=== PATIENT | female | born 1955 | race Hispanic/Latino ===

== ENCOUNTER 2017-12-29 20:18 | Observation (INO) | payer BC, SELFPAY ==
[2017-12-29] MEDS ORDERED: Morphine 4 mg/ml ISec IVP STA (21:51)
--- NOTE | 2017-12-29 22:18 | CT ---
EXAM: CT Left Lower Extremity Without Intravenous Contrast, Hip CLINICAL HISTORY: 62 years old, female; Pain; Hip; Left; Additional info: Left hip pain TECHNIQUE: Axial computed tomography images of the left hip without intravenous contrast. All CT scans at this facility use one or more dose reduction techniques, viz.: automated exposure control; ma/kV adjustment per patient size (including targeted exams where dose is matched to indication; i.e. head); or iterative reconstruction technique. Coronal and sagittal reformatted images were created and reviewed. COMPARISON: No relevant prior studies available. FINDINGS: Bones/joints: No acute fracture. Mild degenerative changes of LEFT hip joint. Moderate degenerative changes within lower lumbar spine. No dislocation. Probable bone islands. Soft tissues: 2.0 cm fluid density lesion within subcutaneous tissues left anterolateral lower abdominal wall, incompletely imaged. Clinical correlation is needed. Reproductive: Few coarse calcifications within uterus, likely fibroids. IMPRESSION: 1. No fracture. 2. If hip pain persists, consider MRI to exclude occult fracture/internal derangement. 3. Incidental/non-acute findings are described above.
[2017-12-29 22:32] LABS: BASO # 0.03 K/mm3 (0.0-2.0); BASO % 0.3 % (0.0-3.0); EOS # 0.2 (0.0-0.7); EOS % 1.6 % (1.5-5.0); GRAN # 4.83 (1.4-6.5); GRAN % 51.4 % (50.0-68.0); HEMOGLOBIN 13.6 g/dL (12.0-16.0); LYMPH # 3.9 (1.2-3.4); LYMPH % 41.6 % (22.0-35.0); MEAN CELL VOLUME 85.1 fl (80.0-105.0); MEAN CORPUSCULAR HEMOGLOBIN 28.1 pg (25.0-35.0); MONO # 0.5 (0.1-0.6); MONO % 5.1 % (1.0-6.0); RBC 4.84 10^6/uL (3.5-6.1); RED CELL DISTRIBUTION WIDTH 15.7 % (11.5-14.5); WHITE BLOOD COUNT 9.4 10^3/ul (4.5-11.0)
[2017-12-29] MEDS ORDERED: HYDROmorphone 1 mg/ml ISec IVP STA (22:41)
[2017-12-29 22:43] LABS: ALB/GLOB RATIO 1.4 (1.1-1.8); ALBUMIN 4.2 g/dL (3.0-4.8); ALT/SGPT 36 U/L (7-56); AST/SGOT 22 U/L (14-36); BLOOD UREA NITROGEN 17 mg/dL (7-21); CALCIUM 9.4 mg/dL (8.4-10.5); GFR AFRICAN-AMERICAN > 60; GFR NON-AFRICAN AMERICAN > 60
--- NOTE | 2017-12-29 22:48 | ED PDOC ---
Arrival/HPI - General Historian: Patient <Christina Shafer - Last Filed: 12/30/17 01:12> <Sumanth Haynes - Last Filed: 12/30/17 01:19> - General Chief Complaint: Hip Pain Time Seen by Provider: 12/29/17 20:21 - History of Present Illness Narrative History of Present Illness (Text): 12/29/17 22:42 62yr old female presents today with worsening left hip pain. pt denies recent trauma or injury. pt states that she has been having worsening left hip pain x 1 month. pt states she has been taking motrin for pain without improvement. pt states that the pain has become so back that she is unable to bare weight on the left leg. pt states she has hx of MS and has decreased function of the right leg so she relies on the left leg for slight ambulation. pt denies numbness in the extremity. pt states she has chronic swelling of the bilateral lower legs. pt denies abdominal pain. pt denies bladder or bowel incontinence. pt states pain in the hip is so severe that her back only minimally hurts. no other complaints. (Christina Shafer) Past Medical History - Provider Review Nursing Documentation Reviewed: Yes - Travel History Have you recently traveled outside [place] w/in the past 3 mons?: No - Infectious Disease Hx of Infectious Diseases: None - Tetanus Immunization Tetanus Immunization: Unknown - Neurological Hx Neurological Disorder: Yes Hx Multiple Sclerosis: Yes - Musculoskeletal/Rheumatological Hx Musculoskeletal Disorders: Yes (MS) Hx Falls: Yes - Psychiatric Hx Depression: No Hx Emotional Abuse: No Hx Physical Abuse: No Hx Substance Use: No - Surgical History Hx Tonsillectomy: Yes Other/Comment: LIPOSUCTION - Anesthesia Hx Anesthesia: Yes Hx Anesthesia Reactions: No Hx Malignant Hyperthermia: No - Suicidal Assessment Feels Threatened In Home Enviroment: No <Christina Shafer - Last Filed: 12/30/17 01:12> Family/Social History - Physician Review Nursing Documentation Reviewed: Yes Family/Social History: Unknown Family HX Smoking Status: Former Smoker Hx Alcohol Use: No Hx Substance Use: No <Christina Shafer - Last Filed: 12/30/17 01:12> Allergies/Home Meds <Christina Shafer - Last Filed: 12/30/17 01:12> <Sumanth Haynes - Last Filed: 12/30/17 01:19> Allergies/Adverse Reactions: Allergies No Known Allergies Allergy (Verified 09/18/14 14:47) Home Medications: Home Meds Medication Instructions Recorded Confirmed No Known Home Med 12/29/17 12/29/17 Review of Systems - Review of Systems Constitutional: absent: Fatigue, Fevers Respiratory: absent: SOB, Cough Cardiovascular: absent: Chest Pain, Palpitations Gastrointestinal: absent: Abdominal Pain, Nausea, Vomiting Musculoskeletal: Arthralgias, Back Pain. absent: Neck Pain Skin: absent: Rash, Pruritis Neurological: absent: Headache, Dizziness Psychiatric: absent: Anxiety, Depression <Christina Shafer - Last Filed: 12/30/17 01:12> Physical Exam Vital Signs Reviewed: Yes Temperature: Afebrile Blood Pressure: Hypertensive Pulse: Regular Respiratory Rate: Normal Appearance: Positive for: Well-Appearing, Non-Toxic, Uncomfortable Pain Distress: Moderate Mental Status: Positive for: Alert and Oriented X 3 - Systems Exam Head: Present: Atraumatic Mouth: Present: Moist Mucous Membranes Respiratory/Chest: Present: Clear to Auscultation Cardiovascular: Present: Regular Rate and Rhythm Abdomen: Present: Other (there is a 2cm round mobile non tender lesion noted to the left lower anterior abdominal wall without surrounding erythema. ). No: Tenderness, Distention, Rebound, Guarding Back: Present: Normal Inspection. No: Midline Tenderness, Paraspinal Tenderness Upper Extremity: Present: Normal ROM Lower Extremity: Present: Edema, Tenderness (pelvis stable; + ttp over anterior aspect of hip; no edema, no erythema, no ecchymosis; limited rom of hip, no calf tenderness, + lower leg edema, no erythema; right leg; + edema, nontender, compression stocking noted on calf. ), Neurovascularly Intact. No: Normal ROM, Erythema, Capillary Refill < 2 s Neurological: Present: GCS=15, Speech Normal Skin: Present: Warm, Dry, Normal Color. No: Rashes Psychiatric: Present: Alert, Oriented x 3 <Christina Shafer - Last Filed: 12/30/17 01:12> Vital Signs Temp Pulse Resp BP Pulse Ox 12/30/17 01:18 90 18 148/79 99 12/30/17 00:04 93 H 12 148/92 H 100 12/29/17 22:48 88 16 159/78 H 100 12/29/17 20:28 97.6 F 89 16 182/98 H 100 Medical Decision Making <Christina Shafer - Last Filed: 12/30/17 01:12> <Sumanth Haynes - Last Filed: 12/30/17 01:19> ED Course and Treatment: 12/29/17 22:52 62yr old female with MS with severe left hip pain and inability to ambulate. pt refused xray of hip; ct of hip; FINDINGS: Bones/joints: No acute fracture. Mild degenerative changes of LEFT hip joint. Moderate degenerative changes within lower lumbar spine. No dislocation. Probable bone islands. Soft tissues: 2.0 cm fluid density lesion within subcutaneous tissues left anterolateral lower abdominal wall, incompletely imaged. Clinical correlation is needed. Reproductive: Few coarse calcifications within uterus, likely fibroids. IMPRESSION: 1. No fracture. 2. If hip pain persists, consider MRI to exclude occult fracture/internal derangement. 3. Incidental/non-acute findings are described above. pt given toradol for pain without improvement; morphine added. pt reassessment after toradol and morphine; pt still with 10/10 pain and limited ROM of hip. dilaudid added. pt seen and evaluated by dr. 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 daniels covering for dr. curiel; accepts observational status admission for intractable pain, inability to ambulate. impression; hip pain, arthritis, intractable pain admit observational status. (Christina Shafer) - Lab Interpretations Lab Results: 12/29/17 22:28 12/29/17 22:28 Lab Results 12/29/17 22:28: WBC 9.4, RBC 4.84, Hgb 13.6, Hct 41.2, MCV 85.1, MCH 28.1, MCHC 33.0, RDW 15.7 H, Plt Count 248, MPV 11.0, Gran % 51.4, Lymph % (Auto) 41.6 H, [place] % (Auto) 5.1, Eos % (Auto) 1.6, Baso % (Auto) 0.3, Gran # 4.83, Lymph # ( Auto) 3.9 H, [place] # (Auto) 0.5, Eos # (Auto) 0.2, Baso # (Auto) 0.03 12/29/17 22:28: Sodium 144, Potassium 3.8, Chloride 108 H, Carbon Dioxide 23, Anion Gap 17, BUN 17, Creatinine 0.6 L, Est GFR ( Amer) > 60, Est GFR ( Non-Af Amer) > 60, Random Glucose 88, Calcium 9.4, Total Bilirubin 0.2, AST 22, ALT 36, Alkaline Phosphatase 111, Total Protein 7.3, Albumin 4.2, Globulin 3.0, Albumin/Globulin Ratio 1.4 - RAD Interpretation Radiology Orders: 12/29/17 20:46 EXT LOWER W/O CONTRAST LEFT [CT] Stat 12/29/17 22:39 DUPLEX LOWER EXTRM VEIN LEFT [US] Stat - Medication Orders Current Medication Orders: Discontinued Medications Hydromorphone HCl (Dilaudid) 1 mg IVP STAT STA Stop: 12/29/17 22:42 Last Admin: 12/29/17 22:47 Dose: 1 mg MAR Pain Assessment Document 12/29/17 22:47 CNR (Rec: 12/29/17 22:48 CNR [place] [id number]) Pain Reassessment Is this a pain reassessment? No IVP Administration Document 12/29/17 22:47 CNR (Rec: 12/29/17 22:48 CNR [place] [id number]) Charges for Administration # of IVP Administrations 1 Ketorolac Tromethamine (Toradol) 60 mg IM STAT STA Stop: 12/29/17 20:46 Last Admin: 12/29/17 20:58 Dose: 60 mg MAR Pain Assessment Document 12/29/17 20:58 CNR (Rec: 12/29/17 20:59 CNR [id number]) Pain Reassessment Is this a pain reassessment? No IM Administration Charges Document 12/29/17 20:58 CNR (Rec: 12/29/17 20:[address]) Injection Site MAR Injection Site Right Deltoid Charges for Administration # of IM Administrations 1 Morphine Sulfate (Morphine) 4 mg IVP STAT STA Stop: 12/29/17 21:52 Last Admin: 12/29/17 22:07 Dose: 4 mg MAR Pain Assessment Document 12/29/17 22:07 CNR (Rec: 12/29/17 22:15 CNR [facility]) Pain Reassessment Is this a pain reassessment? 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 / has examined the patient and agrees with the treatment plan. <Sumanth Haynes - Last Filed: 12/30/17 01:19> Disposition/Present on Arrival - Present on Arrival Any Indicators Present on Arrival: No History of DVT/PE: No History of Uncontrolled Diabetes: No Urinary Catheter: No History of Decub. Ulcer: No History Surgical Site Infection Following: None - Disposition Have Diagnosis and Disposition been Completed?: Yes Disposition Time: 00:21 Patient Plan: Observation <Christina Shafer - Last Filed: 12/30/17 01:12> <Sumanth Haynes - Last Filed: 12/30/17 01:19> - Disposition Diagnosis: Hip pain, Intractable pain Disposition: HOSPITALIZED Patient Problems: Current Active Problems Problem Status Onset Hip pain Acute Intractable pain Acute Condition: FAIR
--- NOTE | 2017-12-30 02:01 | CP.PCM.PN ---
Subjective - Date & Time of Evaluation Date of Evaluation: 12/30/17 Time of Evaluation: 01:59 - Subjective Subjective: S:complained of left hip pain. Seen at bedside. She is in a wheelchair now. Has sharp left hip pain. Has no other complaints. Received toradol 60 mg IV , morphine 4 mg IV earlier with no help. Received dlaudid 1 mg IV with some help (10:47). Now beginning to have pain again. Last Vital Signs 3 Temp 97.6 F 12/29/17 20:28 Pulse 90 12/30/17 01:18 Resp 18 12/30/17 01:18 BP 148/79 12/30/17 01:18 Pulse Ox 99 12/30/17 01:18 O: not in acute distress, is in wheelchair. LUNGS:Normal breathing pattern. A:Left hip pain. Multiple sclerosis. P:Dilaudid 1 mg IV Q4H x 3 doses, will order analgesic in AM. Objective - Vital Signs/Intake and Output Vital Signs (last 24 hours): Temp Pulse Resp BP Pulse Ox 97.6 F 90 18 148/79 99 12/29/17 20:28 12/30/17 01:18 12/30/17 01:18 12/30/17 01:18 12/30/17 01:18
[2017-12-30 02:23] VITALS: RESP 20; BMI 32.3
[2017-12-30] MEDS ORDERED: Pneumococcal 23-Valent Vaccine IM ONE (02:23)
[2017-12-30] MEDS: HYDROmorphone 0.5 mg/0.5 ml ISec IVP PRN ×2 (02:33→06:17)
--- NOTE | 2017-12-30 09:44 | HP ---
DATE OF EXAM: 12/30/2017 CHIEF COMPLAINT AND HISTORY OF PRESENT ILLNESS: This is a 62-year-old female who is coming to the hospital complaining of left leg pain. She says the pain has been occurring for the last month, but it has become worse and she is not able to ambulate. She is not able to bear weight. She has been taking Motrin, but has not been having improvement of her symptoms. She does have back issues. She says she has a history of MS and has decreased function. She is in a wheelchair. She does ambulate though. She has no fevers or chills. No nausea. No vomiting. She says the pain is 10/10. It is mostly in the left leg. Does not improve with medications. It is worsen with movement. REVIEW OF SYMPTOMS: All other review of symptoms are within normal limits except that was mentioned. ALLERGIES: NO KNOWN DRUG ALLERGIES. HOME MEDICATIONS: None. FAMILY HISTORY: Noncontributory. SOCIAL HISTORY: She lives with her . She denies smoking or drinking. PAST SURGICAL HISTORY: Tonsillectomy. PAST MEDICAL HISTORY: Multiple sclerosis. PHYSICAL EXAMINATION: VITAL SIGNS: Temperature is 97.3, pulse of 99, blood pressure is 133/73, respirations 20, O2 saturation is 100. GENERAL: The patient lying in bed, uncomfortable, and in no acute distress. HEENT: Atraumatic and normocephalic. Anicteric sclerae. Moist mucosa. [place] conjunctivae. No oral lesions. NECK: No JVD, anterior and posterior adenopathy, thyromegaly, or bruits. CARDIOVASCULAR: S1 and S2 regular. No murmur, rubs, or gallop. LUNGS: Clear to auscultation bilaterally. No wheezes, rales, or rhonchi. ABDOMEN: Bowel sounds are positive. Soft, nontender and nondistended. No hepatosplenomegaly. No rebound and no guarding EXTREMITIES: No cyanosis, clubbing. Lower extremity, 1+ edema. NEUROLOGIC: No facial asymmetry. Tongue is midline. No uvula deviation. Power is 5/5 upper extremity and lower extremity. Sensation intact in upper extremity and lower extremity. PSYCHIATRIC: She is awake, alert and oriented x3. No anxiety or depression. She has normal affect. GENITOURINARY: No CVA tenderness. VASCULAR: 2+ pulses in the carotid pulses and pedal pulses. SKIN: No erythema or nodules. SPINE: Shows normal curvature. LABORATORY DATA: White count of 9.4, hemoglobin is 13.6, platelet count is 248. Chemistry shows the creatinine is 0.6. ASSESSMENT: 1. Left leg pain. 2. Multiple sclerosis. 3. Lower extremity edema. PLAN: The patient is admitted to the hospital. She was given Toradol. She does not have improvement of her symptoms. The patient is on Lasix daily. She has lower extremity edema. I will give her Lasix. She is on 1 mg of Dilaudid every 4, but as she says that the pain continues to be above 5 or 6 and not able to get relief and then it starts worsening before the 4 hours. I will increase the Dilaudid to 4 mg. I will get Dr. Olivares for consultation. She will also need physical therapy. She was given a pneumonia shot. She has lower extremity Dopplers ordered. I will place her on Lasix. Because of the edema, she is also going to get an echo. We will follow closely. Preet Hopkins MD
[2017-12-30] MEDS: HYDROmorphone 2 mg/ml ISec IVP PRN ×2 (10:03→14:06)
--- NOTE | 2017-12-30 14:16 | US ---
PROCEDURE: Left lower extremity venous US HISTORY: Leg pain and swelling. Evaluate for DVT. PHYSICIAN(S): Bandar Bean MD. TECHNIQUE: Duplex sonography and color-flow Doppler with graded compression were used to evaluate the deep venous system of the left lower extremity. The exam is limited by body habitus and edema. FINDINGS: The visualized deep venous system of the left lower extremity is sonographically normal and compressible. Normal wave forms and augmentation are seen. There is no sonographic evidence for deep venous thrombosis in the visualized segments of the left lower extremity. IMPRESSION: 1. No sonographic evidence for deep venous thrombosis in the visualized segments of the left lower extremity.
[2017-12-30] MEDS ORDERED: MethylPREDNISolone Depo 40 mg/ml Inj IM ONE (14:23)
[2017-12-30] MEDS ORDERED: Bupivacaine 0.5% Inj(30mL) IJ ONE (14:23)
[2017-12-30 18:09] VITALS: TEMP 99.2
--- NOTE | 2017-12-30 18:43 | CARD ---
APPROVED REPORT EXAM: Two-dimensional and M-mode echocardiogram with Doppler and color Doppler. INDICATION 2D DIMENSIONS IVSd1.3 (0.7-1.1cm)LVDd3.7 (3.9-5.9cm) PWd1.2 (0.7-1.1cm)LVDs2.5 (2.5-4.0cm) FS (%) 31.1 %LVEF (%)59.7 (>50%) M-Mode DIMENSIONS Left Atrium (MM)3.60 (2.5-4.0cm)Aortic Root2.80 (2.2-3.7cm) Aortic Cusp Exc.2.30 (1.5-2.0cm) Aortic Valve AoV Peak Sclcrjmb967.0cm/[place] Peak GR.8mmHg Mitral Valve MV E Cfgwebgx02.2cm/sMV A Jomzppsy41.5cm/sE/A ratio0.8 TDI Lateral E' Peak V9.94cm/sMedial E' Peak V6.82cm/sE/Lateral E'6.4 E/Medial E'9.3 Tricuspid Valve TR Peak Sewolads520sd/sRAP [id number] Peak Gr.21mmHg [id number] LEFT VENTRICLE The left ventricle is normal size. There is mild concentric left ventricular hypertrophy. The left ventricular function is normal. The left ventricular ejection fraction is within the normal range. There is normal LV segmental wall motion. RIGHT VENTRICLE The right ventricle is normal size. The right ventricular systolic function is normal. ATRIA The left atrium size is normal. The right atrium size is normal. The interatrial septum is intact with no evidence for an atrial septal defect. AORTIC VALVE The aortic valve is not well visualized. There is no aortic valvular stenosis. MITRAL VALVE The mitral valve is normal in structure. Mitral regurgitation is trace. TRICUSPID VALVE The tricuspid valve is normal in structure. There is mild tricuspid regurgitation. PULMONIC VALVE The pulmonic valve is not well visualized. GREAT VESSELS The aortic root is normal in size. The IVC is normal in size and collapses >50% with inspiration. PERICARDIAL EFFUSION There is no pleural effusion. There is no pericardial effusion. <Conclusion> Technically limited study. Chamber sizes appear within normal limits. LV systolic function appears normal. Mild concentric LVH. Mild tricuspid regurgitation.
--- NOTE | 2017-12-30 20:44 | CP.PCM.PN ---
Subjective - Date & Time of Evaluation Date of Evaluation: 12/30/17 Time of Evaluation: 20:38 - Subjective Subjective: Patient was being transferred to the commode when he slid down on the floor with the assitance of the nurses. The nurses called a [place] as a result since the nurse couldn't pick her up alone. With the assistance of the director of gift planning, Phlebotimist and Resident they placed her back on the commode. The patient was examined and PMD Dr. Hopkins was notified. He told us to cancel the Discharge order and to notify her that she should stay. Patient was unwilling to stay and agreed to sign out AMA. She was examined and determined to be alert and orientated x 3 prior to being discharged. Patient was made aware of possible future falls at while and risk of cranial injury, hematoma, hemorrhage, demise and . She verbally told me she understood the risks and signed out AMA. Objective - Vital Signs/Intake and Output Vital Signs (last 24 hours): Temp Pulse Resp BP Pulse Ox 99.2 F 96 H 20 128/65 98 12/30/17 18:00 12/30/17 18:00 12/30/17 18:00 12/30/17 18:00 12/30/17 18:00 - Medications Medications: Current Medications Furosemide (Lasix) 40 mg IVP DAILY [place] Last Admin: 12/30/17 11:20 Dose: 40 mg Hydromorphone HCl (Dilaudid) 2 mg IVP Q4H PRN PRN Reason: Pain, severe (8-10) Last Admin: 12/30/17 14:06 Dose: 2 mg - Head Exam Head Exam: ATRAUMATIC, NORMAL INSPECTION, NORMOCEPHALIC - Eye Exam Eye Exam: EOMI, Normal appearance - ENT Exam ENT Exam: Mucous Membranes Moist - Respiratory Exam Respiratory Exam: Clear to Ausculation Bilateral, NORMAL BREATHING PATTERN - Cardiovascular Exam Cardiovascular Exam: REGULAR RHYTHM, +S1, +S2 - Extremities Exam Additional comments: Unable to move lower extremities bilaterally. Passive ROM intact. No pain upon examination. - Psychiatric Exam Psychiatric exam: Normal Affect, Normal Mood - Skin Skin Exam: Dry, Intact
--- NOTE | 2017-12-31 00:23 | CON ---
DATE: ORTHOPEDIC CONSULTATION HISTORY OF PRESENT ILLNESS: The patient was admitted for weakness and pain of her pelvis area and left groin. X-rays done in the ER. CAT shows no evidence of fracture, but she is tender not to the anterior part of the hip capsule but more in the area of inguinal ligament and the left greater trochanter region. CAT scan does not show a fracture and she is hesitant to get a MRI because of her size and being that she has multiple sclerosis, she does not ambulate at all and she lives alone and transfers by herself from bed to motorized chair, and she could accomplish activities of daily living that way. She has a good support of friends. She is tender to the ilioinguinal ligament, along the anterior superior iliac spine, so I injected that region to suspect tendonitis with Depo-Medrol, Marcaine. We will hold off on the MRI as the CAT scan yet did not show fracture, but if need be, we will have to get a MRI to evaluate for a stress fracture. We will put warm compress on that region of trigger point pain along the anterior superior iliac spine and see how the cortisone injection works. We will evaluate her tomorrow. FINAL DIAGNOSES: Inguinal ligament tendonitis and trochanteric bursitis. Also we will see how the cortisone and Depo-Medrol Marcaine injection worked by evaluating her tomorrow that was given to the left groin trigger point near the ilioinguinal ligament laterally. We will hold off the MRI unless she gets worse of the left hip. Lobo Olivares DO
[2017-12-31 00:33] VITALS: BP 147/84; PULSE 107; O2SAT 100
== END 2017-12-30 20:38 | disposition left against medical advice (07) ==
LOC: ED 20:18 → ERH 12-30 00:22 → 3RSO 12-30 01:24
PROVIDERS: ADMIT Internal Medicine Nephrology; ATTEND Internal Medicine Nephrology
DX: M70.62 Trochanteric bursitis, left hip (principal); M77.8 Other enthesopathies, not elsewhere classified; G35 Multiple sclerosis; M79.605 Pain in left leg
CPT/HCPCS: 73700; 80053; 85025; 93306; 93971; 96372; 96374; 96375; 96376; 99285; G0378; J1170; J1885; J1940; J2270